=== PATIENT | female | born 1995 | race Caucasian/White ===

== ENCOUNTER → 2024-04-09 08:30 | Outpatient (BNVA) | payer OTHER, SELFPAY | PROVIDERS: Family Provider Internal Medicine; PCP Internal Medicine; Visit Provider Obstetrics & Gynecology | DX: N91.2 Amenorrhea, unspecified (principal) | CPT/HCPCS: 84702 ==

== ENCOUNTER → 2024-04-12 08:04 | Outpatient (BNVA) | payer OTHER, SELFPAY | PROVIDERS: Family Provider Internal Medicine; PCP Internal Medicine; Visit Provider Nurse Practitioner Women's Health | DX: N92.6 Irregular menstruation, unspecified (principal) | CPT/HCPCS: 84702 ==

== ENCOUNTER → 2024-05-01 10:17 | Outpatient (BNVA) | payer OTHER, SELFPAY | PROVIDERS: Family Provider Internal Medicine; PCP Internal Medicine; Visit Provider Obstetrics & Gynecology | DX: Z34.91 Encounter for supervision of normal pregnancy, unspecified, first trimester (principal); Z3A.08 8 weeks gestation of pregnancy | CPT/HCPCS: 76801 ==

== ENCOUNTER → 2024-05-14 13:57 | Outpatient (BNVA) | payer BC, SELFPAY | PROVIDERS: Family Provider Internal Medicine; PCP Internal Medicine; Visit Provider Nurse Practitioner Women's Health | DX: Z34.91 Encounter for supervision of normal pregnancy, unspecified, first trimester (principal); Z3A.08 8 weeks gestation of pregnancy | CPT/HCPCS: 80307; 84315; 85025; 86592; 86762; 86803; 86850; 86900; 87086; 87340; 87806 ==

== ENCOUNTER → 2024-06-10 14:53 | Outpatient (BNVA) | payer BC, SELFPAY | PROVIDERS: Family Provider Internal Medicine; PCP Internal Medicine; Visit Provider Obstetrics & Gynecology | DX: O09.899 Supervision of other high risk pregnancies, unspecified trimester (principal) | CPT/HCPCS: 84315; 87624 ==

== ENCOUNTER → 2024-06-20 13:29 | Outpatient (BNVA) | payer BC, SELFPAY | PROVIDERS: Family Provider Internal Medicine; PCP Internal Medicine; Visit Provider Nurse Practitioner Women's Health | DX: O09.899 Supervision of other high risk pregnancies, unspecified trimester (principal); Z3A.00 Weeks of gestation of pregnancy not specified | CPT/HCPCS: 82105; 84315; 87086; 87491; 87591 ==

== ENCOUNTER → 2024-07-18 14:19 | Outpatient (BNVA) | payer BC, SELFPAY | PROVIDERS: Family Provider Internal Medicine; PCP Internal Medicine; Visit Provider Obstetrics & Gynecology | DX: O26.892 Other specified pregnancy related conditions, second trimester (principal); Z3A.20 20 weeks gestation of pregnancy | CPT/HCPCS: 76805 ==

== ENCOUNTER → 2024-07-29 14:17 | Outpatient (BNVA) | payer BC, SELFPAY | PROVIDERS: Family Provider Internal Medicine; PCP Internal Medicine; Visit Provider Obstetrics & Gynecology | DX: O09.899 Supervision of other high risk pregnancies, unspecified trimester (principal) | CPT/HCPCS: 84315 ==

== ENCOUNTER → 2024-08-13 07:57 | Outpatient (BNVA) | payer BC, SELFPAY | PROVIDERS: Family Provider Internal Medicine; PCP Internal Medicine; Visit Provider Nurse Practitioner Women's Health | DX: O09.899 Supervision of other high risk pregnancies, unspecified trimester (principal); O23.40 Unspecified infection of urinary tract in pregnancy, unspecified trimester; Z3A.00 Weeks of gestation of pregnancy not specified | CPT/HCPCS: 84315; 87086; 87184 ==

== ENCOUNTER → 2024-09-18 14:03 | Outpatient (BNVA) | payer BC, SELFPAY | PROVIDERS: Family Provider Internal Medicine; PCP Internal Medicine; Visit Provider Obstetrics & Gynecology | DX: O09.899 Supervision of other high risk pregnancies, unspecified trimester (principal); Z3A.00 Weeks of gestation of pregnancy not specified | CPT/HCPCS: 82950; 84315; 85025 ==

== ENCOUNTER → 2024-09-27 08:52 | Outpatient (BNVA) | payer BC, SELFPAY | PROVIDERS: Family Provider Internal Medicine; PCP Internal Medicine; Visit Provider Obstetrics & Gynecology | DX: Z34.90 Encounter for supervision of normal pregnancy, unspecified, unspecified trimester (principal) | CPT/HCPCS: 82951; 82952 ==

== ENCOUNTER → 2024-09-30 15:20 | Outpatient (BNVA) | payer BC, SELFPAY | PROVIDERS: Family Provider Internal Medicine; PCP Internal Medicine; Visit Provider Obstetrics & Gynecology | DX: O09.899 Supervision of other high risk pregnancies, unspecified trimester (principal); Z3A.00 Weeks of gestation of pregnancy not specified | CPT/HCPCS: 84315 ==

== ENCOUNTER → 2024-10-17 11:07 | Outpatient (BNVA) | payer BC, SELFPAY | PROVIDERS: Family Provider Internal Medicine; PCP Internal Medicine; Visit Provider Obstetrics & Gynecology | DX: O09.899 Supervision of other high risk pregnancies, unspecified trimester (principal); Z3A.00 Weeks of gestation of pregnancy not specified | CPT/HCPCS: 84315 ==

== ENCOUNTER → 2024-10-24 13:22 | Outpatient (BNVA) | payer BC, SELFPAY | PROVIDERS: Family Provider Internal Medicine; PCP Internal Medicine; Visit Provider Nurse Practitioner Women's Health | DX: O09.899 Supervision of other high risk pregnancies, unspecified trimester (principal); Z3A.00 Weeks of gestation of pregnancy not specified | CPT/HCPCS: 76816; 84315 ==

== ENCOUNTER → 2024-11-07 15:10 | Outpatient (BNVA) | payer BC, SELFPAY | PROVIDERS: Family Provider Internal Medicine; PCP Internal Medicine; Visit Provider Obstetrics & Gynecology | DX: O09.899 Supervision of other high risk pregnancies, unspecified trimester (principal); Z3A.00 Weeks of gestation of pregnancy not specified | CPT/HCPCS: 84315; 87081 ==

== ENCOUNTER → 2024-11-14 15:26 | Outpatient (BNVA) | payer BC, SELFPAY | PROVIDERS: Family Provider Internal Medicine; PCP Internal Medicine; Visit Provider Obstetrics & Gynecology | DX: O09.899 Supervision of other high risk pregnancies, unspecified trimester (principal); Z3A.00 Weeks of gestation of pregnancy not specified | CPT/HCPCS: 84315 ==

== ENCOUNTER → 2024-11-21 15:13 | Outpatient (BNVA) | payer BC, SELFPAY | PROVIDERS: Family Provider Internal Medicine; PCP Internal Medicine; Visit Provider Obstetrics & Gynecology | DX: Z34.80 Encounter for supervision of other normal pregnancy, unspecified trimester (principal) | CPT/HCPCS: 84315 ==

== ENCOUNTER 2024-11-28 05:04 | Inpatient (IN) | payer BC, SELFPAY ==
[2024-11-28] VITALS (29 sets, daily range): BP systolic 93–131; BP diastolic 56–82; PULSE 56–90; RESP 15–17; TEMP 35.6–36.7; O2SAT 98–99; BMI 31.7
[2024-11-28 05:32] LABS: Basophils % 0.3 %; Eosinophils # 0.2 10^3/uL (0.0-0.8); Eosinophils % 2.1 %; Hematocrit 32.6 % (36-47); Lymphocytes # 1.9 10^3/uL (0.8-4.8); Lymphocytes % 25.4 %; Mean Corpuscular HGB Conc 31.6 g/dL (30-55); Mean Corpuscular Hemoglobin 25.3 pg (27-33); Mean Corpuscular Volume 80.1 fl (85-98); Mean Platelet Volume 11.8 fL (7.4-10.4); Monocytes # 0.6 10^3/uL (0.2-0.9); Monocytes % 7.3 %; Neutrophils # 4.86 10^3/uL (1.8-7.7); Neutrophils % 64.4 %; Nucleated Red Blood Cells % 0 %; Platelet Count 195 10^3/cmm (157-399); Red Blood Count 4.07 10^6/uL (3.85-5.65); Red Cell Distribution Width 14.6 % (12.1-15.1); White Blood Count 7.55 10^3/uL (3.29-11.43)
[2024-11-28] MEDS: citric acid-sodium citrate 30 mL UDC PO (06:44)
[2024-11-28] MEDS: famotidine 20 mg/2 mL INJ IVP (06:46)
[2024-11-28] MEDS: metoclopramide 5 mg/mL SDV 2 mL 10 MG IVP ×2 (06:47→12:56)
--- NOTE | 2024-11-28 06:57 | ANES.PREANE2 ---
Pre-Anesthetic Assessment Height/Weight: Height 1.7 m Weight 91.852 kg Temp Resp O2 Del Method 98.0 F 15 Room Air 11/28/24 05:36 11/28/24 05:10 11/28/24 05:20 Preop Diagnosis: Prior Operation Date: 11/28/24 07:20 Proposed Procedures p Section Repeat(Not Applicable) - Pedro Ramos MD Was Beta Reyes taken within 24 hours: N/A Was Clonidine taken within 24 hours: N/A Last intake: Intake Last Liquid Date 11/28/24 Last Liquid Time 05:00 Last Solid Date 11/27/24 Last Solid Time 18:00 Social No alcohol and No tobacco Exam alert, oriented x 3, clear to auscultation bilaterally and regular rate & rhythm Airway Submandibular: within normal limits Cervical ROM: within normal limits Mallampati: Class II Dentition: full History/ROS No significant history except as noted and No significant complaints Pulmonary None reported CV/HEM None reported None reported Hepatic None reported GI None reported Metabolic None reported Musc/skel None reported Neuropsych None reported Anesthetic Plan ASA status: 2 Anesthesia: Anesthesia Evaluation and Regional (specify below) Other: SAB Risk of > 500 ml blood loss (7ml/kg in children): No Medications/Allergies Home Medications ?Medication ?Instructions ?Recorded ?Confirmed ?Last Taken ?Type PNV 153-FA 400 mcg-om3 35 mg-dha tab PO DAILY 05/14/24 11/21/24 Unknown History 25 mg-epa 5 mg-fish oil chew tablet ( Gummies) Allergies Allergy/AdvReac Type Severity Reaction Status Date / Time No Known Allergies Allergy Verified 11/28/24 05:50 [facility] Anesthesia Medical History No pertinent past medical history neghx: htn, dm, thyroid, dvt/pe PCP: none Surgical History History of repair of ACL (~2011) Hx of appendectomy (~2009) Hx of section (~10/22/18) FTP, progressed to 4cm then NRFHRP- In [place] Family History Grandfather Stroke Grandmother Diabetes Denies family history of Colon cancer Ovarian cancer Prostate cancer Heart disease Breast cancer Hypertension Uterine cancer Thyroid disease Social History Smoking and tobacco/nicotine status: never used tobacco/nicotine Female Reproductive History : 4 Data Anesthesia 11/28/24 05:23 Short CBC 11/28/24 Range/Units 05:23 WBC 7.55 (3.29-11.43) 10^3/uL Hgb 10.30 L (11.27-16.99) g/dL Hct 32.6 L (36-47) % MCV 80.1 L (85-98) fl Plt Count 195 (157-399) 10^3/cmm Neut % (Auto) 64.4 % Neut # (Auto) 4.86 (1.8-7.7) 10^3/uL Blood Bank 11/28/24 05:23 Blood Type O Positive Rho(D) Type Rh positive Antibody Screen Negative
--- NOTE | 2024-11-28 06:58 | PM.OBGYHP ---
Providers/Chief Complaint Admitting Physician: Pedro Ramos MD Primary MINI LAB OPERATOR: Pedro Ramos MD Primary Care Provider: Pedro Zeng MD Chief Complaint: C Section HPI MINI LAB OPERATOR History of Present Illness Cindy Cowan is a 29 year old female A2 at 39 w 0 d no complications h/o previous x one admitted for repeat no c/o + active movements Present Details : 4 Para: 1 Labs Rubella: Immune RPR: Negative GBS: Positive Medications/Allergies Home Medications ?Medication ?Instructions ?Recorded ?Confirmed ?Last Taken ?Type PNV 153-FA 400 mcg-om3 35 mg-dha tab PO DAILY 05/14/24 11/21/24 Unknown History 25 mg-epa 5 mg-fish oil chew tablet ( Gummies) Allergies Allergy/AdvReac Type Severity Reaction Status Date / Time No Known Allergies Allergy Verified 11/28/24 05:50 PFSH MINI LAB OPERATOR PFSH: Medical History No pertinent past medical history neghx: htn, dm, thyroid, dvt/pe PCP: none Surgical History History of repair of ACL (~2011) Hx of appendectomy (~2009) Hx of section (~10/22/18) FTP, progressed to 4cm then NRFHRP- In [place] Family History Grandfather Stroke Grandmother Diabetes Denies family history of Colon cancer Ovarian cancer Prostate cancer Heart disease Breast cancer Hypertension Uterine cancer Thyroid disease Social History Smoking and tobacco/nicotine status: never used tobacco/nicotine History History History 4 Term 1 0 Miscarriages/Ectopic 2 Living Children 1 Care PATRICK Calculator Estimated Delivery Date Method Current WG Current Estimate 12/05/24 LMP (Certain) 39w 0d Other Estimates 12/05/24 Ultrasound #1 39w 0d Specific Issues/Plans PREVIOUS C/SECTION - for FTP, NRFHR, desires repeat csection GBS UTI: + 06/22/24, treated with augmentin on 06/25/24, repeat culture ordered 08/13/24 Vitals/I&O/Wt Last Vital Signs Temp 98.0 F 11/28/24 05:36 Resp 15 11/28/24 05:10 O2 Del Method Room Air 11/28/24 05:20 Weight last 48 hrs Weight 202 lb 8 oz Physical Exam Narrative: General: comfortable, awake, alert Lungs: clear Cor: RRR Abd: soft, nontender Ext: normal External monitor: heart tracing good variability, + accelerations Data 11/28/24 05:23 Results Labs OB ([facility]): Obstetrics US 10/24/24 Blood Type O Positive Today Antibody Screen Negative Today Hct, (36-47) 32.6 % L Today Hgb, (11.27-16.99) 10.30 g/dL L Today Rho(D) Type Rh positive Today Plt Count, (157-399) 195 10^3/cmm Today Hep Bs Antigen, (Nonreactive) Non-reactive 05/14/24 Hepatitis C Antibody, (Nonreactive) Non-reactive 05/14/24 Rubella IgG Antibody, (0.0-10.0) 235.1 IU/mL H 05/14/24 RPR, (Nonreactive) Nonreactive 05/14/24 HIV 1&2 Ab & HIV 1 Ag, (Non-Reactiv) Non-reactive 05/14/24 Glucose 1 Hr 50 gm, (85-140) 141 mg/dL H 09/18/24 Gest Glucose Tolerance mg/dL 09/27/24 Ser , Semi-Qnt 14744.00 mIU/mL 04/12/24 Urine Opiates Screen, (Negative) Negative ng/mL 05/14/24 Ur Barbiturates Screen, (Negative) Negative ng/mL 05/14/24 Ur Phencyclidine Scrn, (Negative) Negative ng/mL 05/14/24 Ur Amphetamines Screen, (Negative) Negative ng/mL 05/14/24 U Benzodiazepines Scrn, (Negative) Negative ng/mL 05/14/24 Urine Cocaine Screen, (Negative) Negative ng/mL 05/14/24 U Marijuana (THC) Screen, (Negative) Negative ng/mL 05/14/24 Micro Urine Specimen 08/13/24 Pap Smear Interpret See note 06/10/24 A&P Assessment and plan (1) Supervision of other high-risk : 39 w 0 d admitted for repeat procedure and risks explained Risks include, but not limited to, infection, bleeding, injury to internal organs, anesthesia, blood transfusions. Patient understands and wants to proceed PDMP PDMP Reviewed: Not Reviewed Attestations Medical Necessity Statement*: patient at 39 w 0 d, admitted for repeat Coding Level of Care Code Acute Code for Chg Fwd Diagnoses Supervision of other high-risk O09.899
--- NOTE | 2024-11-28 07:01 | W.PM.OPSUD ---
Surgery/Procedure H&P Update DATE OF PROCEDURE: November 28, 2024 DATE H&P PERFORMED: 11/28/24 H&P UPDATE INFORMATION: I have reviewed H&P completed within last 30 days, I have examined patient prior to procedure and No changes to prior documentation PREOP DIAGNOSIS: Prior PLANNED PROCEDURE: Operation Date: 11/28/24 07:20 Proposed Procedures p Section Repeat(Not Applicable) - Pedro Ramos MD
--- NOTE | 2024-11-28 08:08 | PM.OP2 ---
Brief Operative Note Date of procedure: 11/28/24 Pre-op diagnosis: 39 w 0 d; previous x one Post-op diagnosis: same Procedure Done: repeat low-transverse Surgeon: Pedro Ramos Estimated blood loss (mL): 500 Complications: none Post-op Plan: and postop care Condition: stable Disposition: floor Coding Level of Care Code Acute Code for Chg Fwd
--- NOTE | 2024-11-28 08:40 | ANE.PACU2 ---
Inpatient post-anesthesia follow up: Airway intact: Yes Vital signs: Temperature 97.3 F Pulse Rate 78 Respiratory Rate 16 Blood Pressure 112/77 Pulse Oximetry 99 Oxygen Delivery Me thod Room Air Oxygen Flow Rate Fraction of Inspir ed Oxygen Hydration adequate: Yes Nausea and vomiting: No Pain level: 1 Mental status: Baseline
--- NOTE | 2024-11-28 09:10 | P.OP_ITS ---
Operative Report Date of procedure: November 28, 2024 Pre-op diagnosis: 39 weeks gestation Previous x one For repeat Post-op diagnosis: same Post-op findings: Vigorous female Normal placenta and cord Normal uterus, tubes, and ovaries Procedure done: Repeat low-transverse Implants: none Specimens removed/disposition: placenta, discarded Surgeon: Pedro Ramos MD Anesthesia: Spinal Estimated blood loss (mL): 500 Complications: none Findings: Vigorous female Normal placenta and cord Normal uterus, tubes, and ovaries Condition: stable Disposition: floor Brief History: Patient with previous , scheduled for repeat . Procedure: Informed consent signed. Patient was taken to the operating room, placed supine in the left lateral tilt position. Spinal anesthesia and a Toth catheter were already placed. The abdomen was prepped and draped in the usual sterile fashion. A Pfannenstiel incision was made over an old scar and carried down through skin and subcutaneous tissue and fascia. The fascial incision was extended laterally with Corbett scissors. The fascia was from the underlying rectus muscles. The rectus muscles were split in the midline. The peritoneum was entered bluntly avoiding underlying organs. A bladder flap was created. A low transverse uterine incision was made and extended laterally bluntly avoiding the uterine vessels. Clear amniotic fluid was seen. The baby was delivered in cephalic presentation atraumatically. The cord was clamped and cut and the baby was handed to an awaiting cast iron drain pipe layer. Cord blood was obtained. The placenta was manually removed intact. The uterus was exteriorized. The uterine cavity was bluntly curetted with wet laps. The uterine incision was then closed with a continuous interlocking stitch of O chromic. Adequate hemostasis was seen. No bleeding was seen. The uterine incision was again inspected and found to have good hemostasis. The uterus was returned into the abdominal cavity. The fascia was then closed with a continuous stitch of O-Vicryl. Additional interrupted stitches of O-Vicryl were used for fascial closure. The subcutaneous tissue was irrigated and inspected for hemostasis. The skin was then reapproximated using Insorb kristopher. Postoperative condition stable Disposition to recovery room Estimated blood loss 500 cc, no replacement Sponge, needle, and instrument counts were correct x two There were no complications
[2024-11-28] MEDS: ondansetron 2 mg/ML SDV 2 mL 4 MG IVP (09:58)
[2024-11-28] MEDS: dextrose 5%-lactated ringers 1,000 ML 125 ML IV (12:00)
[2024-11-28] MEDS: ketorolac 30 mg/mL INJ IVP ×2 (12:57→18:18)
[2024-11-28] MEDS: docusate sodium 100 mg Capsule PO (18:18)
[2024-11-28 22:19] LABS: Hematocrit 28.8 % (36-47); Mean Corpuscular HGB Conc 32.3 g/dL (30-55); Mean Corpuscular Hemoglobin 25.8 pg (27-33); Mean Platelet Volume 12.7 fL (7.4-10.4); Platelet Count 188 10^3/cmm (157-399); Red Cell Distribution Width 14.6 % (12.1-15.1); White Blood Count 8.21 10^3/uL (3.29-11.43)
[2024-11-29] VITALS (8 sets, daily range): BP systolic 96–133; BP diastolic 56–72; PULSE 73–84; RESP 16–18; TEMP 36.6–37.1; O2SAT 98; BMI 31.7
[2024-11-29] MEDS: ketorolac 30 mg/mL INJ IVP
[2024-11-29] MEDS: PRENATAL VIT NO.130/IRON/FOLIC 1 EACH TABLET PO (10:30)
[2024-11-29] MEDS: ibuprofen 800 mg tablet PO ×2 (10:30→15:12)
[2024-11-29] MEDS: docusate sodium 100 mg Capsule PO (10:31)
[2024-11-29] MEDS: ferrous sulfate EC 325 mg Tablet PO (10:39)
[2024-11-29] MEDS: lanolin oint 7 gm 1 APPLIC TOPICAL (10:40)
--- NOTE | 2024-11-29 12:50 | P.PN_ITS ---
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 EXPERT Subjective 2 Subjective: Interval history: no c/o eating, voiding, ambulating well mild incisional pain, relieved with ibuprofen no bleeding wants to go home without any difficulties Labor: Amniotic Membrane Status: Intact Vitals/I&O/Wt Last Vital Signs Temp 97.8 F 11/29/24 15:10 Pulse 74 11/29/24 15:10 Resp 16 11/29/24 15:10 BP 118/72 11/29/24 15:10 Pulse Ox 98 11/29/24 15:10 O2 Del Method Room Air 11/29/24 10:30 Physical Exam 2 Narrative: General comfortable, awake, alert VS afebrile, normal Lungs: clear Cor: RRR Abd: soft, nontender Wound clean and dry Ext: no edema Urinary Catheter Management: Toth: Cath Placed During This Visit: yes, but has since been removed by the nurse Reason for Continuing Indwelling Catheter: Required Immobilization for Trauma or Surgery or Anesthesia Urinary Catheter Date of Insertion: 11/28/24 Urinary Catheter Time of Insertion: 07:05 Date Urinary Catheter Removed: 11/28/24 Time Urinary Catheter Discontinued: 19:30 Data 11/28/24 21:05 A&P Assessment and plan (1) S/P : POD #1 Repeat low-transverse doing well discharge home today instructions and precautions given call/return if fever, chills, nausea, vomiting, headaches, abdominal pain, bleeding, inability to void, swelling, leg pain; feelings of depression or mood changes; wound redness, swelling, or discharge; chest pain; shortness of breath f/u in 1 week or PRN (2) Anemia: Rx iron 1-2 x / day Encouraged iron-rich foods PDMP PDMP Reviewed: Last Reviewed 11/29/24 13:06 EDT by Pedro Ramos MD Attestations 2 Medical Necessity Statement*: patient s/p repeat , plan to discharge to home today Coding Level of Care Code Acute Code for Chg Fwd Diagnoses S/P Z98.891 Anemia D64.9
--- NOTE | 2024-11-29 13:05 | PM.OBGYDC ---
Discharge Providers CONFIGURATION MANAGEMENT MANAGER Date of Admission: 11/28/24 05:04 Date of Discharge: 11/29/24 Attending Provider at Admission: Pedro Ramos MD Attending Provider at Discharge: Pedro Ramos MD Consults: none Primary CONFIGURATION MANAGEMENT MANAGER: Pedro Ramos MD Primary Care Provider: Pedro Zeng MD Diagnoses at Discharge Discharge Diagnosis (1) S/P : Details from hospital stay: 28 y.o. A2 at 39 w 0 d h/o previous x one no complications admitted for schedule repeat Repeat low-transverse was done without any complications Patient and baby did well patient wanted to go home on the first postoperative day She was afebrile and doing well Patient was discharged to home on POD #1 Status: Acute (2) Anemia: Details from hospital stay: patient with postop Hgb 9.3 no dizziness, weakness, fatigue, palpitations, shortness of breath plan FeSO4 324 mg po 1-2 x / d also iron-rich foods Status: Acute Reason for Visit Reason for Visit: C Section Brief History: 28 y.o. A2 at 39 w 0 d h/o previous x one no complications admitted for schedule repeat Hospital Course Hospital Course 28 y.o. A2 at 39 w 0 d h/o previous x one no complications admitted for schedule repeat Repeat low-transverse was done without any complications Patient and baby did well patient wanted to go home on the first postoperative day She was afebrile and doing well Patient was discharged to home on POD #1 Information Peripartum Data: Delivery Method: complications: none Physical Exam Narrative: General comfortable, awake, alert VS afebrile, normal Lungs: clear Cor: RRR Abd: soft, nontender Wound clean and dry Ext: no edema Urinary Catheter Management: Toth: Cath Placed During This Visit: yes, but has since been removed by the nurse Reason for Continuing Indwelling Catheter: Required Immobilization for Trauma or Surgery or Anesthesia Urinary Catheter Date of Insertion: 11/28/24 Urinary Catheter Time of Insertion: 07:05 Date Urinary Catheter Removed: 11/28/24 Time Urinary Catheter Discontinued: 19:30 History History History 4 Term 1 0 Miscarriages/Ectopic 2 Living Children 1 Discharge Data Studies Completed and Pending Laboratory Results WBC 8.21 10^3/uL (3.29-11.43) 11/28/24 21:05 RBC 3.60 10^6/uL (3.85-5.65) L 11/28/24 21:05 Hgb 9.30 g/dL (11.27-16.99) L 11/28/24 21:05 Hct 28.8 % (36-47) L 11/28/24 21:05 MCV 80.0 fl (85-98) L 11/28/24 21:05 MCH 25.8 pg (27-33) L 11/28/24 21:05 MCHC 32.3 g/dL (30-55) 11/28/24 21:05 RDW 14.6 % (12.1-15.1) 11/28/24 21:05 Plt Count 188 10^3/cmm (157-399) 11/28/24 21:05 MPV 12.7 fL (7.4-10.4) H 11/28/24 21:05 Neut % (Auto) 64.4 % 11/28/24 05:23 Lymph % (Auto) 25.4 % 11/28/24 05:23 [place] % (Auto) 7.3 % 11/28/24 05:23 Eos % (Auto) 2.1 % 11/28/24 05:23 Baso % (Auto) 0.3 % 11/28/24 05:23 Neut # (Auto) 4.86 10^3/uL (1.8-7.7) 11/28/24 05:23 Lymph # (Auto) 1.9 10^3/uL (0.8-4.8) 11/28/24 05:23 [place] # (Auto) 0.6 10^3/uL (0.2-0.9) 11/28/24 05:23 Eos # (Auto) 0.2 10^3/uL (0.0-0.8) 11/28/24 05:23 Baso # (Auto) 0.0 10^3/uL (0.0-0.1) 11/28/24 05:23 Nucleated RBC % (auto) 0 % 11/28/24 05:23 Nucleated RBCs # 0.0 /100WBC 11/28/24 05:23 Blood Type O Positive 11/28/24 05:23 Rho(D) Type Rh positive 11/28/24 05:23 Antibody Screen Negative 11/28/24 05:23 Procedures Performed Repeat low-transverse Vitals Last Vital Signs Temp 97.8 F 11/29/24 15:10 Pulse 74 11/29/24 15:10 Resp 16 11/29/24 15:10 BP 118/72 11/29/24 15:10 Pulse Ox 98 11/29/24 15:10 O2 Del Method Room Air 11/29/24 10:30 Results Labs OB ([facility]): Obstetrics US 10/24/24 Blood Type O Positive 11/28/24 Antibody Screen Negative 11/28/24 Hct, (36-47) 28.8 % L 11/28/24 Hgb, (11.27-16.99) 9.30 g/dL L 11/28/24 Rho(D) Type Rh positive 11/28/24 Plt Count, (157-399) 188 10^3/cmm 11/28/24 Hep Bs Antigen, (Nonreactive) Non-reactive 05/14/24 Hepatitis C Antibody, (Nonreactive) Non-reactive 05/14/24 Rubella IgG Antibody, (0.0-10.0) 235.1 IU/mL H 05/14/24 RPR, (Nonreactive) Nonreactive 05/14/24 HIV 1&2 Ab & HIV 1 Ag, (Non-Reactiv) Non-reactive 05/14/24 Glucose 1 Hr 50 gm, (85-140) 141 mg/dL H 09/18/24 Gest Glucose Tolerance mg/dL 09/27/24 Ser , Semi-Qnt 55736.00 mIU/mL 04/12/24 Urine Opiates Screen, (Negative) Negative ng/mL 05/14/24 Ur Barbiturates Screen, (Negative) Negative ng/mL 05/14/24 Ur Phencyclidine Scrn, (Negative) Negative ng/mL 05/14/24 Ur Amphetamines Screen, (Negative) Negative ng/mL 05/14/24 U Benzodiazepines Scrn, (Negative) Negative ng/mL 05/14/24 Urine Cocaine Screen, (Negative) Negative ng/mL 05/14/24 U Marijuana (THC) Screen, (Negative) Negative ng/mL 05/14/24 Micro Urine Specimen 08/13/24 Pap Smear Interpret See note 06/10/24 Discharge Plan Discharge Patient Disposition: Home Condition: Stable Prescriptions: New oxycodone-acetaminophen [Percocet] 5-325 mg tablet 1 tab PO Q8H PRN (Reason: pain) Qty: 30 0RF Continued Gummies 400 mcg-35 mg- 25 mg-5 mg tablet,chewable 1 tab PO DAILY Discharge Orders: Discharge Order (Routine); Ordered 11/29/24 Ordered By: Pedro Ramos Referrals: Elisabet Tovar NP [Nurse Practitioner, CONFIGURATION MANAGEMENT MANAGER] - 12/12/24 11:00 am Referral Note: 2 week follow up on 12/12/24 at 11:00am 6 week follow up on 01/09/25 at 10:45am Discharge Diet: Usual diet Discharge Activity: Increase activity as tolerated Patient Instructions: OB [facility], OB Anesthesia Instructions, OB Food/Drug Interaction Guide, OB Care at Home, Opioid Safety, OB Proud Parent Packet, Patient Portal & [place]osh[place] Instructions Discharge Attestations CONFIGURATION MANAGEMENT MANAGER Time Spent in Discharge Care*: less than 30 min Coding Level of Care Code Acute Code for Chg Fwd Diagnoses S/P Z98.891 Anemia D64.9
== END 2024-11-29 15:25 | disposition home or self-care (01) | DRG 788 ==
PROVIDERS: Admitting Provider Obstetrics & Gynecology; PCP Internal Medicine; Visit Provider Obstetrics & Gynecology
PROC: 10D00Z1 Extraction of Products of Conception, Low, Open Approach (ICD-10-PCS; CPT 59514; principal; 2024-11-28 07:00)
DX: O34.211 Maternal care for low transverse scar from previous cesarean delivery (principal); O99.02 Anemia complicating childbirth; Z3A.39 39 weeks gestation of pregnancy; Z37.0 Single live birth
CPT/HCPCS: 36415; 51702; 59025; 59409; 85025; 85027; 86850; 86900; J1885; J2274; J2371; J2405; J2765; J3010; J3490; J7121; J9999